=== PATIENT | male | born 1995 | race Caucasian/White ===

== ENCOUNTER 2016-12-01 13:06 | Emergency (ER) | payer MEDICAID, OTHER ==
[2016-12-01] MEDS ORDERED: NS 1,000 ML IV ONE (13:20)
[2016-12-01] MEDS ORDERED: CLINDAMYCIN 600 MG/DEXTROSE 50 ML IV ONE (13:21)
--- NOTE | 2016-12-01 13:27 | EDPHY ---
H & P Stated Complaint: Dental abcess from broken tooth;facial swelling x24 hrs Source: Patient, Family Exam Limitations: No limitations - Personal History Current Tetanus Diphtheria and Acellular Pertussis (TDAP): Yes - Medical/Surgical History Other PMH: recurring dental abcesses - Social History Smoking Status: Current every day smoker HPI/ROS: CHIEF COMPLAINT: Facial swelling, dental pain HISTORY OF PRESENT ILLNESS: Patient complains of 2 days history of left-sided dental pain and facial swelling. This gradual onset. Constant duration. Mild- to-moderate pain. Worse with palpation and chewing. He has had poor dental care with no dental visits in the past 2 years. This tooth has been a problem for him for many months. He reports being in [facility] recently with no care. No trauma or injury. No rashes or lesions. No chest pain or shortness of breath. No other associated complaints or modifying factors. REVIEW OF SYSTEMS: Ten systems reviewed and are negative unless otherwise noted in the HPI PERTINENT MEDICAL HISTORY: Noncontributory EXAMINATION General Appearance: Alert, no distress Head: normocephalic, atraumatic Eyes: Pupils equal and round, no conjunctival pallor or injection ENT, Mouth: Mucous membranes moist. Uvula midline. Airway is widely patent and without edema. No abnormality of the floor of the mouth. There is erythema around the gumline left upper first premolar. Mild fluctuance. This is a partially fractured tooth. No trismus Neck: Normal inspection, supple, non-tender. No meningismus or rigidity. Respiratory: Lungs are clear to auscultation. No wheezing, rhonchi or crackles. Cardiovascular: Regular rate and rhythm. No murmur. Gastrointestinal: Abdomen is soft and nontender Back: non-tender, no bony abnormalities Neurological: A&O, nonfocal, normal gait Skin: Warm and dry, no rash. No lesions to the palms of the hands or the fingernails. Extremities: Nontender, no pedal edema Psychiatric: Mood and affect normal DIFFERENTIAL DIAGNOSES: Including but not limited to tooth abscess, facial cellulitis, facial edema, facial abscess, osteomyelitis MDM: 1:23 p.m. Examination reveals a likely abscess premolar on the left maxillary ridge, approximately tooth number 12. There is left maxillary edema in pain. I have ordered a CT scan soft tissue to rule out facial abscess. Vital signs are within normal limits. There is no tachycardia, tachypnea or fever. 2:55 p.m. Notified by radiologist Dr. Castro of the CT scan findings of the soft tissue neck. There are lengthy impression notes as dictated. I have discussed this with the patient and page oral maxillofacial surgeon for consultation. 3:20 p.m. I discussed the case with oral surgeon Dr. Licona. I informed him of the CT scan findings, the history, physical examination findings. He recommends that we incise the dental abscess. He also recommends clindamycin if the patient can afford, amoxicillin if not. Also recommends Peridex oral rinse twice daily. Would like to see the patient in his office on Saturday or Saturday. I informed the patient of these findings and they are comfortable with this plan. We will adhere to his recommendations. 3:38 p.m. I have incise and drain the dental abscess without complication. Patient tolerated well. There is good return of 5-10 cc of purulent fluid. He will be discharged home on antibiotics, Peridex oral rinse and instructions to follow up with oral surgeon on Saturday or Saturday. His mother is at bedside and is also comfortable this plan. He is discharged home stable condition. PROCEDURE: Incision and Drainage Consent: Verbal Location: Left upper 1st premolar Length: 1 cm Complexity: Simple Anesthesia: Local, 1% lidocaine plain, 3 mL Procedure description: The dental area was rinsed with sterile saline. It was prepped with Hurricaine spray. Local anesthesia injected as above. After anesthesia, an 18 gauge needle was used to drain the abscess. It was 5-10 cc of purulence removed. No bleeding. Tolerated well. No complication. Expressed: 5-10cc, purulent Wound care: Twice Daily rinse with Peridex as discussed Follow-up: 2 days with oral surgeon SUPERVISION: This patient was independently evaluated without direct examination by the attending physician. Case was discussed with attending physician. Case discussed with Dr. Garay (Benitez Cole) Constitutional: Initial Vital Signs Heart Rate 85 12/01/16 13:08 Respiratory Rate 18 12/01/16 13:08 Blood Pressure 132/76 H 12/01/16 13:08 O2 Sat (%) 95 12/01/16 13:08 O2 Delivery Mode Room Air Home Medications: Medication Instructions Recorded Chlorhexidine Gluconate [Periogard] 10 ml MM BID #1 btl 12/01/16 Clindamycin 300 mg PO Q8 #60 cap 12/01/16 Medical Decision Making ED Course/Re-evaluation: I did not see this patient while he was in the emergency department. However his care was discussed with the PA while the patient was in the department. I agree with treatment plan and management (Tyler Garay) - Data Points Laboratory Results: Laboratory Results 12/01/16 13:30 Medications Given: Discontinued Medications Dexamethasone (Decadron Injection) 10 mg IVP EDNOW ONE Stop: 12/01/16 14:44 Last Admin: 12/01/16 14:49 Dose: 10 mg Clindamycin Phosphate/Dextrose (Cleocin 600 Mg (Premix)) 50 mls @ 100 mls/hr IV EDNOW ONE PRN Reason: Protocol Stop: 12/01/16 13:50 Last Admin: 12/01/16 13:33 Dose: 50 mls Sodium Chloride (Ns) 1,000 mls @ 0 mls/hr IV ONCE ONE PRN Reason: Wide Open Stop: 12/01/16 13:21 Last Admin: 12/01/16 13:59 Dose: 1,000 mls Ketorolac Tromethamine (Toradol) 30 mg IVP EDNOW ONE Stop: 12/01/16 14:44 Last Admin: 12/01/16 14:49 Dose: 30 mg Departure - Departure Disposition: Home, Routine, Self-Care Clinical Impression: Dental abscess, Dental caries Condition: Good Instructions: Dental Abscess (ED) Additional Instructions: Antibiotics and Peridex rinse as discussed. Follow up with oral surgeon on Saturday or Saturday. Return to ER for worsening swelling, pain, fever or difficulty opening the mouth Referrals: NONE *PRIMARY CARE P,. [Primary Care Provider] - As per Instructions Del Licona DDS [Doctor of Dental Surgery] - As per Instructions Stand Alone Forms: Work Excuse Prescriptions: Chlorhexidine Gluconate [Periogard] 10 ml MM BID #1 btl Clindamycin 300 mg PO Q8 #60 cap
[2016-12-01 13:42] LABS: % IMMATURE GRANULYOCYTES 0.3 % (0.0-1.1); ABSOLUTE IMMATURE GRANULOCYTES 0.03 10^3/uL (0.00-0.10); ADD DIFF? NO; ADD MORPH? NO; ADD SCAN? NO; ATYPICAL LYMPHOCYTE FLAG 0 (0-99); FRAGMENT RBC FLAG 0 (0-99); HEMATOCRIT 45.2 % (40.0-51.0); HEMOGLOBIN 15.2 g/dL (13.7-17.5); LEFT SHIFT FLG 10 (0-99); LIPEMIA HEMOLYSIS FLAG 80 (0-99); MEAN CELL HEMOGLOBIN 29.3 pg (27.9-34.1); MEAN CELL HEMOGLOBIN CONCENTR. 33.6 g/dL (32.4-36.7); MEAN CELL VOLUME 87.3 fL (81.5-99.8); MEAN PLATELET VOLUME 10.9 fL (8.7-11.7); PLATELET CLUMPS FLAG 40 (0-99); PLATELET COUNT 195 10^3/uL (150-400); RED BLOOD CELL COUNT 5.18 10^6/uL (4.40-6.38); RED CELL DISTRIBUTION WIDTH 13.5 % (11.5-15.2)
[2016-12-01] MEDS ORDERED: IOPAMIDOL (ISOVUE-300) 100 ML BTL IV ONE (14:12)
[2016-12-01] MEDS ORDERED: KETOROLAC 30 MG/1 ML SDV IVP ONE (14:43)
[2016-12-01] MEDS ORDERED: DEXAMETHASONE 10 MG/ML VIAL IVP ONE (14:43)
[2016-12-01] MEDS ORDERED: KETOROLAC 30 MG/1 ML SDV ONE (14:44)
[2016-12-01] MEDS ORDERED: BENZOCAINE UNIT DOSE SPRAY HURRICAINE MM ONE (15:23)
[2016-12-01 15:54] VITALS: BP 122/70; PULSE 86; RESP 16; TEMP 98.4; O2SAT 96
== END 2016-12-01 16:05 | disposition home or self-care (01) ==
PROC: [UNRECOGNIZED PROCEDURE] (principal; 2016-12-01)
DX: K08.89 Other specified disorders of teeth and supporting structures (principal); K02.9 Dental caries, unspecified; F17.200 Nicotine dependence, unspecified, uncomplicated
CPT/HCPCS: 82947-QW; 96365; J1885; Q9967

== ENCOUNTER 2017-11-23 11:00 | Emergency (ER) | payer MEDICAID ==
--- NOTE | 2017-11-23 11:31 | EDPHY ---
H & P Stated Complaint: TOOTHACHE Time Seen by Provider: 11/23/17 11:30 HPI/ROS: HPI: This is a 22-year-old male who presents with Chief Complaint: Toothache Location: Bottom right molar Quality: Pain Duration: Weeks Signs and Symptoms: no fever, no nausea, no vomiting, no diarrhea, no urinary symptoms, no chest pain, no shortness of breath, no wheezing, no cough, no sore throat, no neck stiffness, no joint pain, no swollen glands, no ear pain, no rash, facial swelling Timing: Daily Severity: Moderate Context: Patient has a history of dental abscesses, extraction scheduled in 2 weeks with [facility], has had antibiotics (he believes Clindamycin) for the infection of same tooth 3 weeks ago, on Suboxone and took Motrin for pain. + tobacco user. Complains of bottom right tooth pain. Reports that the 1 next to his wisdom tooth. Denies fever/facial swelling/discharge/difficulty swallowing. Modifying Factors: See above Comment: ROS: see HPI Constitutional: no fever, no chills, no weight loss Eyes: No blurred vision Respiratory: No shortness of breath, no cough Cardiovascular: No chest pain, no palpitations Gastrointestinal: No nausea, no vomiting, no diarrhea, no hematemesis, no blood in stool Genitourinary: No dysuria, no blood in urine Extremities: No myalgias, no edema Neurologic: No weakness, no numbness Skin: No rashes, no petechiae Hematologic: No bruising, no bleeding MEDICAL/SURGICAL/SOCIAL HISTORY: Medical history: Generally healthy. Does not take any regular medications. Surgical history: Denies Social history: Tobacco user. Family history noncontributory. CONSTITUTIONAL: awake and alert, no obvious distress HEENT: Atraumatic and normocephalic, PERRL, EOMI. Nares patent; no rhinorrhea; no nasal mucosal edema. Tympanic membranes clear. Oropharynx clear, extremely poor dentition, tooth #17 blackened and decayed; no gingival inflammation or erythema. no exudate and moist pink mucosa. Airway patent. No lymphadenopathy. No meningismus. No malocclusion. No TMJ tenderness. Cardiovascular: Normal S1/S2, regular rate, regular rhythm, without murmur rub or gallop. PULMONARY/CHEST: Symmetrical and nontender. Clear to auscultation bilaterally. Good air movement. No accessory muscle usage. ABDOMEN: Soft, nondistended, nontender, no rebound, no guarding, no peritoneal signs, no masses or organomegaly. No CVAT. EXTREMITIES: 2/2 pulses, strength 5/5, no deformities, no clubbing, no cyanosis or edema. NEUROLOGICAL: no focal neuro deficits. GCS 15. SKIN: Warm and dry, no erythema. no rash. Good capillary refill. Source: Patient Exam Limitations: No limitations - Personal History Current Tetanus/Diphtheria Vaccine: Yes Current Tetanus Diphtheria and Acellular Pertussis (TDAP): Yes - Medical/Surgical History Hx Asthma: No Hx Chronic Respiratory Disease: No Hx Diabetes: No Hx Cardiac Disease: No Hx Renal Disease: No Hx Cirrhosis: No Hx Alcoholism: No Hx HIV/AIDS: No Hx Splenectomy or Spleen Trauma: No Other PMH: recurring dental abcesses - Social History Smoking Status: Current every day smoker Constitutional: Initial Vital Signs Temperature (C) 36.9 C 11/23/17 11:08 Heart Rate 87 11/23/17 11:08 Respiratory Rate 16 11/23/17 11:08 Blood Pressure 123/79 H 11/23/17 11:08 O2 Sat (%) 98 11/23/17 11:08 O2 Delivery Mode Room Air Allergies/Adverse Reactions: No Known Allergies Allergy (Verified 12/01/16 15:45) Home Medications: Medication Instructions Recorded Clindamycin 150 mg PO Q8 #30 cap 11/23/17 Suboxone 8 mg-2 mg SL Film 11/23/17 Medical Decision Making Procedures: Procedure: Regional anesthesia. A dental block was performed for odontalgia and dental decay. The block was performed with let topical and then with Marcaine with epinephrine. The patient experienced complete pain relief. The procedure was performed by myself. ED Course/Re-evaluation: Patient given clindamycin. Let topical applied and dental block performed with complete relief of pain. No signs of facial cellulitis/meningitis/dehydration Advised to [facility]. This patient was seen under the supervision of my secondary supervising physician. I evaluated care for this patient independently. Differential Diagnosis: Differential diagnosis includes but is not limited to dental caries, nerve injury, periapical abscess. - Data Points Medications Given: Discontinued Medications Clindamycin (Clindamycin) 300 mg PO EDNOW ONE PRN Reason: Protocol Stop: 11/23/17 12:16 Last Admin: 11/23/17 12:21 Dose: 300 mg Tetracaine/Epinephrine/Lidocaine (Let Gel Topical) 1 ea TP EDNOW ONE Stop: 11/23/17 12:16 Last Admin: 11/23/17 12:35 Dose: Not Given Departure - Departure Disposition: Home, Routine, Self-Care Clinical Impression: Odontalgia, Poor dentition, Dental caries Condition: Good Instructions: Dental Abscess (ED), Toothache (ED) Additional Instructions: Follow up with a Dentist as previously scheduled in 2 weeks for dental extractions. Eat a soft diet. Swish and spit with dilute hydrogen peroxide after every meals and at bedtime. Take Tylenol 650 mg every 4 hr and/or ibuprofen 600 mg every 8 hr as needed for pain. Taking antibiotic as directed until complete. Do not miss any doses. Referrals: PCP Not In,Dictionary [Medical Doctor] - As per Instructions Prescriptions: Clindamycin 150 mg PO Q8 #30 cap
[2017-11-23] MEDS ORDERED: LET GEL TOPICAL 1 EA SYR TP ONE (12:15)
[2017-11-23] MEDS ORDERED: CLINDAMYCIN 150 MG CAP PO ONE (12:15)
[2017-11-23 12:52] VITALS: BP 115/70
== END 2017-11-23 12:51 | disposition home or self-care (01) ==
PROC: 3E0X3BZ Introduction of Anesthetic Agent into Cranial Nerves, Percutaneous Approach (ICD-10-PCS; principal; 2017-11-23)
DX: K08.89 Other specified disorders of teeth and supporting structures (principal); K02.9 Dental caries, unspecified; F17.200 Nicotine dependence, unspecified, uncomplicated

== ENCOUNTER 2018-04-21 15:44 | Emergency (ER) | payer MEDICAID, OTHER ==
[2018-04-21] MEDS ORDERED: GABAPENTIN 300 MG CAP PO ONE (16:19)
--- NOTE | 2018-04-21 16:20 | EDPHY ---
H & P Smoking Status: Current every day smoker Time Seen by Provider: 04/21/18 16:09 HPI/ROS: CHIEF COMPLAINT: Withdrawal symptoms HISTORY OF PRESENT ILLNESS: 23-year-old male brought here by police for medical clearance for incarceration. States he has experienced withdrawal symptoms from no use of Phenibut for 24 hr. States he has had similar withdrawal symptoms multiple times when he does not use this drug for 24-48 hours. He has been seen in other emergency rooms multiple times for this and is typically responded well to Ativan and gabapentin. Denies any history of seizures.. Denies any other drug use including no alcohol use. Does take buprenophine which is prescribed him and he has the prescription with him here today. He has been taking his dose as prescribed. REVIEW OF SYSTEMS: Constitutional: No fever, no chills. Eyes: No discharge. ENT: No sore throat. Cardiovascular: No chest pain, no palpitations. Respiratory: No cough, no shortness of breath. Gastrointestinal: No abdominal pain, no vomiting. Genitourinary: No hematuria. Musculoskeletal: No back pain. Skin: No rashes. Neurological: No headache. (Bridger Sampson) Physical Exam: General Appearance: Alert and no distress. Eyes: Pupils equal and round no injection. Respiratory: Chest is nontender, lungs are clear to auscultation. Cardiac: regular rate and rhythm. Gastrointestinal: Abdomen is soft and nontender, no masses, bowel sounds normal. Musculoskeletal: Neck is supple and nontender. Extremities have full range of motion and are nontender. Skin: No rashes or lesions. (Bridger Sampson) Constitutional: Initial Vital Signs Temperature (C) 36.8 C 04/21/18 15:49 Heart Rate 72 04/21/18 15:49 Respiratory Rate 18 04/21/18 15:49 Blood Pressure 109/71 04/21/18 15:49 O2 Sat (%) 97 04/21/18 15:49 O2 Delivery Mode Room Air Allergies/Adverse Reactions: No Known Allergies Allergy (Verified 12/01/16 15:45) Home Medications: Medication Instructions Recorded Clindamycin 150 mg PO Q8 #30 cap 11/23/17 Suboxone 8 mg-2 mg SL Film 11/23/17 Gabapentin 300 mg PO TID #21 ml 04/21/18 LORazepam [Ativan (*)] 1 mg PO BID #6 tab 04/21/18 Medical Decision Making ED Course/Re-evaluation: 23-year-old male brought here for medical clearance for [facility] complaining of withdrawal symptoms. He is hemodynamically stable and has no evidence of altered mental status. He was treated with IV fluids gabapentin and Ativan and feels improved. We will [facility] him to [facility] with a small prescription for gabapentin and Ativan. Patient is agreeable with this plan. (Bridger Sampson) Other Provider: PHYSICIAN DOCUMENTATION: The patient was evaluated and managed by the Physician Rubberizing Mechanic. My co- signature indicates that I have reviewed this chart and I agree with the findings and plan of care as documented. I am the secondary supervising physician. (Mahendra Guerrero) - Data Points Laboratory Results: Laboratory Results 04/21/18 17:00 04/21/18 17:00 04/21/18 04/21/18 17:00 17:00 WBC 10.42 10^3/uL H 10^3/uL (3.80-9.50) RBC 5.19 10^6/uL 10^6/uL (4.40-6.38) Hgb 15.0 g/dL g/dL (13.7-17.5) Hct 44.7 % % (40.0-51.0) MCV 86.1 fL fL (81.5-99.8) MCH 28.9 pg pg (27.9-34.1) MCHC 33.6 g/dL g/dL (32.4-36.7) RDW 13.9 % % (11.5-15.2) Plt Count 237 10^3/uL 10^3/uL (150-400) MPV 11.7 fL fL (8.7-11.7) Neut % (Auto) 77.6 % H % (39.3-74.2) Lymph % (Auto) 15.2 % % (15.0-45.0) Walton % (Auto) 6.1 % % (4.5-13.0) Eos % (Auto) 0.4 % L % (0.6-7.6) Baso % (Auto) 0.3 % % (0.3-1.7) Nucleat RBC Rel Count 0.0 % % (0.0-0.2) Absolute Neuts (auto) 8.09 10^3/uL H 10^3/uL (1.70-6.50) Absolute Lymphs (auto) 1.58 10^3/uL 10^3/uL (1.00-3.00) Absolute Monos (auto) 0.64 10^3/uL 10^3/uL (0.30-0.80) Absolute Eos (auto) 0.04 10^3/uL 10^3/uL (0.03-0.40) Absolute Basos (auto) 0.03 10^3/uL 10^3/uL (0.02-0.10) Absolute Nucleated RBC 0.00 10^3/uL 10^3/uL (0-0.01) Immature Gran % 0.4 % % (0.0-1.1) Immature Gran # 0.04 10^3/uL 10^3/uL (0.00-0.10) Sodium 140 mEq/L mEq/L (135-145) Potassium 4.2 mEq/L mEq/L (3.3-5.0) Chloride 102 mEq/L mEq/L (97-110) Carbon Dioxide 26 mEq/l mEq/l (22-31) Anion Gap 12 mEq/L mEq/L (8-16) BUN 16 mg/dL mg/dL (7-23) Creatinine 0.8 mg/dL mg/dL (0.7-1.3) Estimated GFR > 60 Glucose 94 mg/dL mg/dL (70-100) Calcium 9.7 mg/dL mg/dL (8.5-10.4) Medications Given: Discontinued Medications Gabapentin (Neurontin) 300 mg PO ONCE ONE Stop: 04/21/18 16:20 Last Admin: 04/21/18 17:03 Dose: 300 mg Sodium Chloride (Ns) 1,000 mls @ 0 mls/hr IV EDNOW ONE; Wide Open PRN Reason: Protocol Stop: 04/21/18 16:37 Last Admin: 04/21/18 17:03 Dose: 1,000 mls Departure - Departure Disposition: Law Enforcement/Court/Care Home Clinical Impression: Symptom of drug withdrawal Condition: Good Additional Instructions: The patient is medically cleared for incarceration. Take gabapentin 3 times a day as needed for withdrawal symptoms. He may take an additional 1 mg of lorazepam up to twice a day as needed for withdrawal symptoms. Return to the ER for worsening or uncontrolled withdrawal symptoms. Referrals: NONE *PRIMARY CARE P,. [Primary Care Provider] - As per Instructions [facility],. [Clinic] - As per Instructions Prescriptions: Gabapentin 300 mg PO TID #21 ml LORazepam [Ativan (*)] 1 mg PO BID #6 tab
[2018-04-21] MEDS ORDERED: NS 1,000 ML IV ONE (16:36)
[2018-04-21 17:18] LABS: PLATELET COUNT 237 10^3/uL (150-400)
[2018-04-21 18:00] VITALS: BP 115/78
== END 2018-04-21 18:00 ==
DX: F19.939 Other psychoactive substance use, unspecified with withdrawal, unspecified (principal); E86.9 Volume depletion, unspecified; F17.200 Nicotine dependence, unspecified, uncomplicated